=== PATIENT | male | born 1925 | race Caucasian/White ===

== ENCOUNTER 2016-08-23 09:54 | Observation (INO) | payer MEDICARE ==
[~2016-08-23] VITALS: Ht 175.3 cm; Wt 65.0 kg
[~2016-08-23 09:54] MED LIST: ASPI325T32 PO; CLOP75TA3 PO; LISI-571 PO; SIMV20TA4 PO; SYN75 PO; TERA5CAP6 PO; ZYL100 PO
[2016-08-23 09:59] VITALS: BP 137/45; PULSE 91; RESP 17; O2SAT 97
--- NOTE | 2016-08-23 10:17 | ED.REPORT ---
HPI-General Illness Date of Service Aug 23, 2016 ED Provider: Ishmael Valentin MD Pt is an 89 year old male with a hx of orthostatic hypotension, CAD w catheterization, TIA, HTN, and hyperlipidemia who presents to the ED via EMS with concerns for confusion and unilateral weakness. He was at his home, when his brother came over and noticed that he appeared confused and weak on one side. Pt reports that he feels normal, and does not recall any confusion this morning. He has no complaints. No family members are available for further questioning. Pt's brother reports that the pt has a history of severe dementia. He reports that these symptoms have occurred in the past, where he had a difficult time walking, the are unsure what his diagnosis was at that time. Nursing Notes Stated Complaint: CONFUSION/WEAKNESS Chief Complaint: General Complaint Nursing Notes Reviewed: Yes Allergies: Coded Allergies: No Known Allergies (Verified Allergy, Unknown, 08/16/14) Scheduled Allopurinol (Allopurinol) 300 Mg Tablet 150 MG PO DAILY Aspirin (Aspirin) 325 Mg Tablet 325 MG PO DAILY Clopidogrel Bisulfate (Plavix) 75 Mg Tablet 75 MG PO DAILY Hydrochlorothiazide (Hydrochlorothiazide) 25 Mg Tablet 25 MG PO DAILY Levothyroxine (Synthroid) 75 Mcg Tablet 75 MCG PO DAILY Lisinopril (Lisinopril) 5 Mg Tablet 10 MG PO DAILY Simvastatin (Simvastatin) 20 Mg Tablet 20 MG PO QAM Terazosin (Terazosin) 5 Mg Capsule 5 MG PO HS General Time Seen by MD: 09:54 Chief Complaint Other (Reported confusion ) Hx Obtained From: Patient, Other family... Arrived By: Ambulance Sudden in Onset?: Yes Onset Occurred: 1 - 4 hours ago Symptom Duration: Duration unknown Severity: Current: No pain currently Severity: Maximum: No pain Similar Sx Previous: Yes Past Medical History Past Medical History Notes: H notes #1: Just admitted to [facility] for a syncopal episode. Records requested. ECHO August 30, 2014 Past Medical History Gout BPH Hypothyroid Reports: Hyperlipidemia, Hypertension Past Surgical History Cardiac Cath 06/25/10 minor irregularities in the left descending, no significant obstructive coronary artery disease Bioprosthetic Aortic valve replacement at [facility] Reports: Appendectomy Smoking History Former Smoker Social History Alcohol Use: Denies alcohol use Drug Use: Denies drug use Review of Systems Full Review of Systems Constitutional: Denies: Chills, Fever, Malaise, Weakness - generalized Respiratory: Denies: Non-productive cough, Shortness of breath, Wheezing Cardiovascular: Denies: Syncope GI: Denies: Nausea, Vomiting Male: Denies Dysuria, Denies Flank pain, Denies Urinary urgency Neurologic: Denies: Change LOC, Dizziness, Headache, Syncope, Weakness Psychiatric: Denies: Confusion Complete sys rev & neg: except as marked. Physical Exam Vital Signs Vital Signs Date Time Temp Pulse Resp B/P Pulse Ox O2 Delivery O2 Flow Rate FiO2 08/23/16 09:59 37.0 91 17 137/45 97 Room Air Initial VS: Reviewed General/Constitutional: Well-developed, Well-nourished Head / Eyes: Atraumatic, Normocephalic, PERRL ENT: Mucous membranes moist, Conjunctiva normal, No scleral icterus Neck: Supple, Non-tender, Full range of motion Respiratory: Breath sounds normal, Clear to auscultation, No respiratory distress Skin: Warm, Dry, No cyanosis Neurologic: Alert, Oriented, Nonfocal Cardiovascular: Regular rhythm, Heart sounds NL, No gallop Whole systolic murmur, left upper sternal border Interpretation & Diagnostics Lab Results Interpretation Result Diagram: 08/23/16 1010 08/23/16 1010 Test 08/23/16 10:10 White Blood Count 9.1th/mm3 (3.8-10.1) Red Blood Count 3.37mil/mm3 (4.40-5.80) Hemoglobin 10.6g/dL (13.8-17.2) Hematocrit 31.8% (41.0-50.0) Mean Corpuscular Volume 94.4fL (81-100) Mean Corpuscular Hemoglobin 31.5pg (27.0-35.0) Mean Corpuscular Hemoglobin Concent 33.3% (32.0-37.0) Red Cell Distribution Width 12.8% (12.3-15.4) Platelet Count 146bil/L (150-400) Neutrophils (%) (Auto) 91.0% (40-74) Lymphocytes (%) (Auto) 3.5% (14-46) Monocytes (%) (Auto) 4.9% (4-12) Eosinophils (%) (Auto) 0.1% (0-5) Basophils (%) (Auto) 0.2% (0-3) Prothrombin Time 10.5sec (8.1-12.5) Prothromb Time International Ratio 0.98ratio Sodium Level 138mEq/L (134-144) Potassium Level 3.5mEq/L (3.5-5.2) Chloride Level 101mEq/L (97-108) Carbon Dioxide Level 23mmol/L (18-29) Blood Urea Nitrogen 31mg/dL (8-27) Creatinine 1.71mg/dL (0.76-1.27) Estimat Glomerular Filtration Rate 40mL/min (>59) Glucose Level 126mg/dL (60-99) Calcium Level 8.9mg/dL (8.5-10.1) Total Bilirubin 0.7mg/dL (0.0-1.2) Aspartate Amino Transf (AST/SGOT) 18U/L (0-50) Alanine Aminotransferase (ALT/SGPT) 7U/L (0-44) Alkaline Phosphatase 56U/L (25-160) Total Creatine Kinase 56U/L (21-232) Creatine Kinase MB 3.5ng/mL (0.0-10.4) Creatine Kinase MB % % (0.0-5.0) Troponin T 0.319ug/L (0.0-0.011) Total Protein 6.5g/dL (6.4-8.4) Albumin 4.0g/dL (3.4-5.0) ECG Interpretation ECG Interpretation: Sinus tachy - 101 Irregular rate T-wave inversions in 2 avf v4-v6 Unchanged from previous Time: 10:23 Interpreted by: ED physician X-Ray Chest Interpretation Chest Xray Interpretation: IMPRESSION: Increased hazy opacity involving the right apex technically indeterminate. This is asymmetric to the contralateral side and new since prior studies. This is technically nonspecific, differential includes nodule versus pneumonia among other possibilities such as tortuous great vessels. If clinically warranted, further assessment with noncontrast CT could be performed to assess for possible pulmonary nodule, or continued radiographic surveillance at clinical discretion. Dictated by: Drew Yanez M.D. on 08/23/2016 at 11:09 Interpretation / Wet Read by: Interpret - Radiologist CT Head Interpretation IMPRESSION: No acute intracranial process. Dictated by: Drew Yanez M.D. on 08/23/2016 at 11:15 Interpretation / Wet Read by: Interpret - Radiologist Re-Eval/Medical Decision Med Decision/Clinical Course 89-year-old male history of CAD, TIA presenting with episode of confusion earlier and weakness short-lived and resolved spontaneously. Brother witnessed or reported that the patient was staring off into space and unresponsive and had gait instability. 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 Reports history of similar in the past and possible history of TIA. Patient does not recall event as he has a history of short-term memory loss. He is back at his baseline per his brother attempted evaluation. CT shows no acute pathology. Labs remarkable for elevated troponin 0.3. CK is normal. Lateral T wave inversions with previous EKG showing lateral T-wave flattening. Patient denies chest pain. Symptoms consistent with possible TIA. Cannot rule out NSTEMI discussed with cardiology who recommended following enzymes and CPK. Aspirin at this time. No heparin at this time. Patient will be admitted for stroke workup and trending EKG and enzymes. Source of Hx: Old records Time of Eval: 11:26 Re-Evaluation/Progress Note: Pt is rechecked, his brother re-iterates the story, reporting that the pt was walking during his episode, and was not complaining of any chest pain. They are informed of his labs and imaging results, and the plan to admit him at this time. They understand and agree, all questions are addressed. Consultation #1: Referral / Consult Name: Dayami Sotelo MD Consulted With: Cardiology Call Returned at: 11:59 Five Piece Expansion Maker Hand: Agrees with eval, Agrees with plan Consultation #2: Referral / Consult Name: Liu Coughlin DO Consulted With: Hospitalist Call Returned at: 12:15 Five Piece Expansion Maker Hand: Will see patient, Agrees with plan, Accepts admit Counseled Regarding: Diagnosis, Lab results, Need for admission Discharge & Departure Primary Impression: TIA (transient ischemic attack) Additional Impression: Elevated troponin Disposition: ADMITTED TO HOSPITAL Discharge Condition All VS Reviewed: Yes Condition: Stable Referrals: Torres Richmond MD (PCP) Scribe Attestation Portions of this note were transcribed by Adriana Luna. I, Dr. Valentin personally performed the history, physical exam and medical decision-making; I reviewed and confirmed the accuracy of the information in the transcribed note. Signed by: Minal Tran, 08/23/2016 [id number] copies to: Torres Richmond MD, Ben M MD Aug 23, 2016 10:17 KENROY LUNA Aug 23, 2016 10:25
[2016-08-23 10:23] LABS: BASOPHILS % (AUTO) 0.2 % (0-3); EOSINOPHILS % (AUTO) 0.1 % (0-5); MONOCYTES % (AUTO) 4.9 % (4-12); Mean Corpuscular Hemoglobin 31.5 pg (27.0-35.0); Mean Corpuscular Volume 94.4 fL (81-100); Platelet Count 146 bil/L (150-400)
[2016-08-23 10:37] LABS: INR 0.98 ratio
--- NOTE | 2016-08-23 11:13 | DRSVH ---
PROCEDURE: X-RAY CHEST ONE VIEW, PORTABLE ([id number]) INDICATIONS: Transiet ISTHEMIC ACCIDENT TECHNIQUE: One view of the chest was acquired. COMPARISON: [facility], CR, XR CHEST 1VW (PORTABLE), 10/31/2014, 11:46. FINDINGS: Surgical changes and devices: None. Lungs and pleura: No pleural effusions or pneumothorax. Mild increased hazy opacification involving the right apex otherwise lungs are clear. Mediastinum: Mediastinal contours appear normal. Heart size is normal. Bones and chest wall: No suspicious bony lesions. Overlying soft tissues appear unremarkable. IMPRESSION: Increased hazy opacity involving the right apex technically indeterminate. This is asymmetric to the contralateral side and new since prior studies. This is technically nonspecific, differential include s nodule versus pneumonia among other possibilities such as tortuous great vessels. If clinically war ranted, further assessment with noncontrast CT could be performed to assess for possible pulmonary no dule, or continued radiographic surveillance at clinical discretion. Dictated by: Drew Yanez M.D. on 08/23/2016 at 11:09 Approved by: Drew Yanez M.D. on 08/23/2016 at 11:11
[2016-08-23] MEDS ORDERED: ALLO300T2 PO (11:16)
[2016-08-23] MEDS ORDERED: HYDR25TA4 PO (11:16)
--- NOTE | 2016-08-23 11:18 | DRSVH ---
PROCEDURE: CT BRAIN WITHOUT CONTRAST ([id number]) INDICATIONS: TIA TECHNIQUE: Noncontrast 4.5 mm thick angled axial sections acquired from the foramen magnum to the vertex, with c oronal reformats. COMPARISON: None. FINDINGS: Image quality: Excellent. CSF spaces: Basal cisterns are patent. No extra-axial fluid collections. The ventricles are symmet rylie in size and shape. Brain: No intracranial bleeds or masses. There is cerebral volume loss for age, with resultant vent ricular and sulcal prominence. There are periventricular and deep white matter chronic small vessel ischemic changes. There is intracranial internal carotid artery atherosclerosis. Skull and face: Calvarium and visualized facial bones appear intact, without suspicious lesions. Sinuses: Visualized sinuses and mastoids are clear. IMPRESSION: No acute intracranial process. Dictated by: Drew Yanez M.D. on 08/23/2016 at 11:15 Approved by: Drew Yanez M.D. on 08/23/2016 at 11:17
[2016-08-23] MEDS ORDERED: Labetalol 5 mg/mL 4 mL Inj IVPUSH PRN (12:15)
[2016-08-23] MEDS ORDERED: Alum-Mag Hydrox-Simeth 30 mL Suspension PO PRN (12:15)
[2016-08-23] MEDS ORDERED: Ondansetron 2 mg/mL 2 mL Inj IVPUSH PRN (12:15)
[2016-08-23] MEDS ORDERED: Polyethylene Glycol (PEG) 17 Gm Powder PO PRN (12:15)
--- NOTE | 2016-08-23 12:15 | PCM.HPMED ---
Subjective Date of Service Aug 23, 2016 Primary Provider: Admitting Physician: Primary Care Physician: Torres Richmond MD Attending Physician: Chief Complaint: Syncopal event, transient loss of consciousness History of Present Illness: Patient is an 89-year-old male with a past medical history significant for coronary artery disease status post catheterization, previous TIA hyperlipidemia and hypertension in addition to severe dementia presenting from home via EMS after he was witnessed by his brother earlier this morning demonstrated event of acute confusion followed by a nonresponsive episode in addition to a transient weakness that led to him needing to slump onto a banister. Patient did not completely lose consciousness, and never fell to the floor shows no concern for acute trauma. The brother ever confirms patient was completely unresponsive at this time event, and patient himself has no recollection. During ER evaluation in fact the patient has no complaints whatsoever, and states he is feeling very well. Does not know his history of dementia states he may have had a heart attack a long time ago, but states he is otherwise healthy and endorses no other medical history, which is inconsistent with that history is obtained from brother. Nonetheless he does not appear in any distress during our interview, symptoms of weakness in addition to impaired consciousness appear to have completely resolved as per his report. Patient's mother was not present during my examination while in hospital floor so my history is obtained entirely from patient in addition to medical record confirmed by emergency room physician of his discussion with brother who was present at time of presentation to emergency department. Review of Systems: Complete review of systems was unable to be conducted due to patient's profound dementia and poor insight into his condition. Allergies Coded Allergies: No Known Allergies (Verified Allergy, Unknown, 08/16/14) Home Medications Allopurinol (Allopurinol) 300 Mg Tablet 150 MG PO DAILY Aspirin (Aspirin) 325 Mg Tablet 325 MG PO DAILY Clopidogrel Bisulfate (Plavix) 75 Mg Tablet 75 MG PO DAILY Hydrochlorothiazide (Hydrochlorothiazide) 25 Mg Tablet 25 MG PO DAILY Levothyroxine (Synthroid) 75 Mcg Tablet 75 MCG PO DAILY Lisinopril (Lisinopril) 5 Mg Tablet 10 MG PO DAILY Simvastatin (Simvastatin) 20 Mg Tablet 20 MG PO QAM Terazosin (Terazosin) 5 Mg Capsule 5 MG PO HS PMH Gout BPH Hypothyroid Hyperlipidemia Hypertension Surgical History Cardiac Cath 06/25/10 minor irregularities in the left descending, no significant obstructive coronary artery disease Bioprosthetic Aortic valve replacement at [facility] Appendectomy Family History Patient denies any significant family history, brother is not present during my examination to corroborate these findings. Social History Hx Alcohol Use: No (Quit in 1980) Hx Substance Use: No Hx Tobacco Use: No Smoking Status: Former Smoker Suspect Abuse/Neglect: Disabled Person Exam Vital Signs Vital Sign - Last Date Time Temp Pulse Resp B/P Pulse Ox O2 Delivery O2 Flow Rate FiO2 08/23/16 09:59 37.0 91 17 137/45 97 Room Air General: Alert, Cooperative, No Acute Distress Eyes: PERRLA Neck: Supple Chest & Lungs: Clear to auscultation & percussion, No adventitious breath sounds Cardiovascular: Regular Rate/Rhythm Abdomen: Non-tender, Non-distended Extremities: No cyanosis/clubbing/edma bilat Neurological: Grossly Neurologically Intact, Cranial Nerves 2-12 Intact, Normal Speech Lab and Diagnostics Result Diagram: 08/23/16 1010 08/23/16 1010 Assessment & Plan 89-year-old male past medical history for significant vascular disease in addition to profound dementia presenting via EMS following transient loss of consciousness syncopal event placed on hospital observation for further evaluation of possible transient ischemic attack / cerebrovascular # Syncopal event/transient loss of consciousness - Patient will be placed on hospital observation following TIA stroke protocol - We monitored on continuous telemetry - MR stroke studies were already obtained, no contrast medium could be used to the patient's impaired renal function MR study of brain did not demonstrate any evidence of CVA - Carotid Doppler studies and echocardiogram are still pending, as is exam fasting lipid panel - Permissive hypertension will be allowed at this time, with when necessary agents made available for excessive elevation of blood pressure # Elevated troponins - May be secondary to renal insufficiency in addition to cardiac strain - We will continue to trend, there is no other EKG evidence of acute coronary syndrome - Additionally will continue telemetry monitoring as noted above - Center for intervention should troponins continued to be upper trending. - Echocardiogram is initially pending as noted above. #Renal insufficiency - A be at least partially related to volume depletion, patient does historically have impaired renal function - We will trial intravenous fluid repletion and continue to monitor. # Vascular disease/hypertension - We will continue patient's home medications at this time with the exception of hydrochlorothiazide which will be held to allow permissive hypertension in the setting of renal insufficiency. - Lipid panel is pending - Statin transitioned from simvastatin to atorvastatin which is a higher potency medication. # Severe dementia - Patient is pleasantly demented - Has poor insight does not appear to need any sitter or one-on-one observation. - On no medications currently. Pain Evaluation: Adequate Pain Control GI Prophylaxis: Not indicated VTE Mechanical Devices: Intermittant Pneumatic CD Resuscitation Status: CPR: Attempt Resuscitation Time spent 50 minutes Liu Coughlin DO Aug 23, 2016 12:15
[2016-08-23 12:30] LABS: Creatine Kinase 56 U/L (21-232)
--- NOTE | 2016-08-23 13:51 | DRSVH ---
PROCEDURE: MRI BRAIN WITHOUT CONTRAST ([id number]) INDICATIONS: syncopy TECHNIQUE: Non-contrast axial T1 spin echo, axial T2 fast spin echo, sagittal and axial FLAIR, coronal T2 fast s pin echo, axial gradient echo, axial diffusion and ADC through the brain. COMPARISON: None. FINDINGS: Image quality: Excellent. CSF spaces: Ventricles appear symmetric in size and shape. Basal cisterns are patent. No extra-axi al fluid collections. Brain: No acute intracranial bleeds or mass effects. Small regions of gradient echo signal abnormal ity within the left superior frontal lobe, as well as the left anterior temporal lobe are present, mehta ggestive of calcifications versus cavernous hemangiomas. There is cerebral volume loss for age. Ther e are periventricular and deep white matter chronic small vessel ischemic changes. Brainstem appears normal. Diffusion-weighted images show no acute ischemic insults. No chronic ischemic insults. No rmal intravascular flow voids are present. Skull and face: Calvarial bone marrow is normal in signal. Orbits are normal. Sinuses: Sinuses and mastoids are clear. IMPRESSION: 1. No acute intracranial animality. No recent infarct. 2. Mild volume loss and small vessel ischemic disease. 3. Small foci of calcification versus cavernous hemangiomata within the left frontal and temporal lob es. Dictated by: Airam Monteiro M.D. on 08/23/2016 at 12:47 Approved by: Airam Monteiro M.D. on 08/23/2016 at 12:49
--- NOTE | 2016-08-23 13:53 | DRSVH ---
PROCEDURE: MRA ANGIOGRAM HEAD WITHOUT CONTRAST ([id number]) INDICATIONS: CONFUSION TECHNIQUE: Noncontrast axial 3-D [id number] MR angiogram, with 3-dimensional maximum intensity projection (M IP) reformats of the internal carotid arteries and posterior circulation then performed. COMPARISON: None. FINDINGS: Image quality: Excellent. Anterior circulation: Moderate reduced flow within the right precavernous internal carotid artery. I ntracranial internal carotid arteries demonstrate otherwise normal size and intraluminal flow signal. The flow within the paired anterior cerebral arteries is normal and symmetric. The flow within the middle cerebral arteries is normal and symmetric. The anterior communicating artery is seen. No oc clusions, or aneurysms. Posterior circulation: Visualized portions of the vertebral arteries demonstrate normal caliber, and join to form a normal appearing basilar artery. origin of the left posterior cerebral artery. The flow within the posterior cerebral arteries is normal and symmetric. No stenoses, occlusions, o r aneurysms. IMPRESSION: 1. 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 Otherwise negative cerebr al MR angiography. Dictated by: Airam Monteiro M.D. on 08/23/2016 at 12:49 Approved by: Airam Monteiro M.D. on 08/23/2016 at 12:51
[2016-08-23 13:56] VITALS: BP 134/60; PULSE 80; RESP 20; O2SAT 95
[2016-08-23 13:58] VITALS: PULSE 88
--- NOTE | 2016-08-23 14:11 | NUR ---
Evaluation completed. Please go to "Notes" then click on "Assessments and Notes" (bottom left corner of screen). Then select appropriate discipline tab on top of screen.
--- NOTE | 2016-08-23 14:46 | NUR ---
Admit Pt is A&O to self, place and time but is forgetful. Pts brother stated that the pt has a hx of dementia. VS WNL. Swallow evaluation completed by speech. 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 Pt is ATKA. Steady gait but d/t dx and recent [place] [facility] [place] episodes pt was placed on fall precautions. Pt denies cp, any pain or discomfort. Pt asked to keep his jeans on after assessment was completed and said that he would take them off tonight.
[2016-08-23 17:28] LABS: APPEARANCE,URINE CLEAR (CLEAR,HAZY); COLOR,URINE YELLOW (YELLOW); OCCULT BLOOD,URINE TRACE (NEGATIVE); PH,URINE 5.5 (5.0-8.0); UROBILINOGEN,URINE NORMAL (NORMAL)
--- NOTE | 2016-08-23 17:47 | DRSVH ---
PROCEDURE: US BILATERAL DUPLEX DOPPLER IMAGING OF THE CAROTIDS ([id number]) INDICATIONS: syncopal episode TECHNIQUE: Color and pulse Doppler interrogation was performed of both carotid systems, with image documentation and velocity measurements. COMPARISON: None. FINDINGS: All stenosis calculations are based on NASCET criteria. Right side: Brachial blood pressure: 134/60 mm Hg. Common carotid artery peak systolic velocity: 63 cm/sec. Internal carotid artery peak systolic velocity: 151 cm/sec. Internal carotid artery end diastolic velocity: 18 cm/sec. External carotid artery peak systolic velocity: 145 cm/sec. ICA/CCA peak systolic ratio: 2.4. Giang scale imaging description: Calcified plaque at the proximal ICA Percent internal carotid artery stenosis: 50-69%. Vertebral artery: Flow direction is antegrade. Left side: Brachial blood pressure: Not obtained Common carotid artery peak systolic velocity: 87 cm/sec. Internal carotid artery peak systolic velocity: 137 cm/sec. Internal carotid artery end diastolic velocity: 15.7 cm/sec. External carotid artery peak systolic velocity: 134 cm/sec. ICA/CCA peak systolic ratio: 1.57. Giang scale imaging description: Calcified plaque at the proximal ICA Percent internal carotid artery stenosis: 50-69%. Vertebral artery: Flow direction is antegrade. 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 on 08/23/2016 at 17:43 Approved by: Drew Yanez M.D. on 08/23/2016 at 17:45
[2016-08-23 17:55] VITALS: BP 155/63; PULSE 57; RESP 18; O2SAT 99
[2016-08-23] MEDS: 0.9% Sodium Chloride 1,000 ML IV SCH (18:07)
[2016-08-23 20:00] VITALS: PULSE 72
[2016-08-23 21:09] VITALS: BP 154/74; PULSE 47; RESP 18; O2SAT 99
[2016-08-24 01:00] VITALS: BP 176/65; PULSE 72; RESP 18; O2SAT 98
[2016-08-24] MEDS: 0.9% Sodium Chloride 1,000 ML IV SCH ×2 (04:13→14:06)
[2016-08-24 05:16] VITALS: BP 123/45; PULSE 72; RESP 18; O2SAT 94
--- NOTE | 2016-08-24 05:38 | NUR ---
NOC Activity Pt is alert and oriented but is a little forgetful. Pleasant and cooperative with care. Neuro checks done. No obvious signs of facial droop, slurring of speech or tongue deviation. 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 Denies chest pain, sob, n/v or abd discomfort. VSS and WNL. Has been afebrile overnight. HS meds administered as scheduled. Intentional hourly rounding done, Bed alarm on for safety.
--- NOTE | 2016-08-24 09:18 | NUR ---
Attempted evaluation this morning but pt. busy with other staff. Will try again as able. Jimbo Ferreira, OTR/L
[2016-08-24 09:23] VITALS: BP 161/61; PULSE 63; RESP 18; O2SAT 97
[2016-08-24 10:06] VITALS: PULSE 75
--- NOTE | 2016-08-24 10:39 | NUR ---
Evaluation completed. Please go to "Notes" then click on "Assessments and Notes" (bottom left corner of screen). Then select appropriate discipline tab on top of screen.
--- NOTE | 2016-08-24 11:03 | NUR ---
Social Work-initial assessment/ readiness for discharge: data:See initial assessment. Pt is a 89 y/o male who was admitted on 08/23/16 for TIA per H&P. Pt's insurance is [facility] and PCP is Torres Richmond MD. EMR Reviewed. Pt's readmission score is 3-high. SW met with pt at bedside,SW role explained. Pt is alert and oriented x3. Pt resides at home alone and his brother lives next door. Pt does not use any DME and does not drive. Pt has no HH or SNF history. Pt has no delivery man care insurance or VA benefits. SW discussed DPOA/ advanced directive, pt confirms he has completed this, SW encouraged a copy to be brought into the hospital. PT has cleared pt for home no needs. Pt states his brother will provide transprot home. Pt declined having SW call his brother. SW provided phone number and plan on white board in room. No anticipated discharge needs. SW will continue to follow if needs arise. Assessment:Pt who is independent at baseline. Plan:Pt to discharge home when medically stable via POV. No anticipated discharge needs. SW will continue to follow if needs arise. MYRTLE Beth Addendum: 08/24/16 at 1107 by STEPHANIE DIAZ Amended: Links added.
[2016-08-24 12:45] VITALS: BP 154/63; PULSE 72; RESP 16; O2SAT 99
--- NOTE | 2016-08-24 12:46 | NUR ---
Case Management: Attempted to give ARTEAGA, however no family members were in the room and the pt has dementia. Darcie HERNANDEZ RN
--- NOTE | 2016-08-24 15:30 | PCM.DC.MED ---
Discharge Summary Date of Service Aug 24, 2016 Dates of Hospitalization Date of Hospital Admission Aug 23, 2016 at 12:35 Date of Discharge: Aug 24, 2016 Providers: Admitting Physician: Liu Coughlin DO Primary Care Physician: Torres Nielsen MD Attending Physician: Liu Coughlin DO Diagnosis at Time of Discharge Diagnosis at Time of Discharge Dehydration with resultant pre-syncopal episode. No evidence of CVA or carcinogenic cause. Procedures Cardiac Echo Impression Echocardiogram Report Name: ANN PHILIPPE WStudy Date: 08/24/2016 Height: 69 in Hospital Exam Location: [facility] Weight: 143 lb Gender: Male BSA: 1.8 m2 : 1925 Age: 89 yrs BP: 123/45 mmHg Reason For Study: SYNCOPE Ordering Physician: MACARIO NAYLOR Performed By: Jesu Alejo Referring Physician: Jessica NIELSEN Interpretation Summary 1. Normal left ventricular size, wall thickness with normal systolic function and an estimated EF of 60-65% 2. Normal right ventricular size and systolic function 3. No evidence for stenosis of the bioprosthetic aortic valve. There is mild insufficiency. 4. Evidence for moderate to severe mitral regurgitation Brief History Patient is an 89-year-old male with a past medical history significant for coronary artery disease status post catheterization, previous TIA hyperlipidemia and hypertension in addition to severe dementia presenting from home via EMS after he was witnessed by his brother earlier this morning demonstrated event of acute confusion followed by a nonresponsive episode in addition to a transient weakness that led to him needing to slump onto a banister. Patient did not completely lose consciousness, and never fell to the floor shows no concern for acute trauma. The brother ever confirms patient was completely unresponsive at this time event, and patient himself has no recollection. During ER evaluation in fact the patient has no complaints whatsoever, and states he is feeling very well. Does not know his history of dementia states he may have had a heart attack a long time ago, but states he is otherwise healthy and endorses no other medical history, which is inconsistent with that history is obtained from brother. Nonetheless he does not appear in any distress during our interview, symptoms of weakness in addition to impaired consciousness appear to have completely resolved as per his report. Patient's mother was not present during my examination while in hospital floor so my history is obtained entirely from patient in addition to medical record confirmed by emergency room physician of his discussion with brother who was present at time of presentation to emergency department. 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 May consider FU studies out patient though risk of endartectomy may outweigh benefits in this patient with multi other coomorbidities. - Echocardio gram demonstrated well seat prostetic valves, essentially unchanged from previous studies. - Most likely related to dehydration ad pt admits to drinking very little, and is additionally on diuretic medication Pt discharged in improved and stable condition. Plan to hold HCTZ, continue only Lisinopril, which had controlled BP well during hospital stay. # Elevated Troponins - May be secondary to renal insufficiency in addition to cardiac strain. NO wall motion abnormalities noted on echo. - They did not prove upward trending, improved with hydration, and in addition CK-MB was within normal limits. #Renal insufficiency - A be at least partially related to volume depletion, patient does historically have impaired renal function Resolved with IV hydration. # Vascular disease/hypertension - We will continue patient's home medications at this time with the exception of hydrochlorothiazide which will be held to allow permissive hypertension in the setting of renal insufficiency. - Statin transitioned from simvastatin to atorvastatin which is a higher potency medication. HCTZ held on discharge with stable BP on only ACEi. # Severe dementia - Patient is pleasantly demented - Good home support by brother. - On no medications currently. Exam Vital Signs (Last) Date Time Temp Pulse Resp B/P Pulse Ox O2 Delivery O2 Flow Rate FiO2 08/24/16 12:45 36.8 72 16 154/63 99 Room Air Exam General: Alert, Cooperative, No Acute Distress Eyes: PERRLA Neck: Supple Chest & Lungs: Clear to auscultation & percussion, No adventitious breath sounds Cardiovascular: Regular Rate/Rhythm Abdomen: Non-tender, Non-distended Extremities: No cyanosis/clubbing/edma bilat Neurological: Grossly Neurologically Intact, Cranial Nerves 2-12 Intact, Normal Speech Test 08/23/16 10:10 08/23/16 17:04 08/23/16 18:22 08/24/16 05:10 White Blood Count 9.1th/mm3 (3.8-10.1) Red Blood Count 3.37mil/mm3 (4.40-5.80) Hemoglobin 10.6g/dL (13.8-17.2) Hematocrit 31.8% (41.0-50.0) Mean Corpuscular Volume 94.4fL (81-100) Mean Corpuscular Hemoglobin 31.5pg (27.0-35.0) Mean Corpuscular Hemoglobin Concent 33.3% (32.0-37.0) Red Cell Distribution Width 12.8% (12.3-15.4) Platelet Count 146bil/L (150-400) Neutrophils (%) (Auto) 91.0% (40-74) Lymphocytes (%) (Auto) 3.5% (14-46) Monocytes (%) (Auto) 4.9% (4-12) Eosinophils (%) (Auto) 0.1% (0-5) Basophils (%) (Auto) 0.2% (0-3) Prothrombin Time 10.5sec (8.1-12.5) Prothromb Time International Ratio 0.98ratio Total Bilirubin 0.7mg/dL (0.0-1.2) Aspartate Amino Transf (AST/SGOT) 18U/L (0-50) Alanine Aminotransferase (ALT/SGPT) 7U/L (0-44) Alkaline Phosphatase 56U/L (25-160) Total Creatine Kinase 56U/L (21-232) Creatine Kinase MB 3.5ng/mL (0.0-10.4) Creatine Kinase MB % % (0.0-5.0) Total Protein 6.5g/dL (6.4-8.4) Albumin 4.0g/dL (3.4-5.0) Urine Color Yellow (YELLOW) Urine Appearance Clear (CLEAR,HAZY) Urine pH 5.5 (5.0-8.0) Urine Specific [place] 1.010 (1.003-1.035) Urine Protein Negativemg/dL (NEG,TRACE) Urine Glucose (UA) Negativemg/dL (NEGATIVE) Urine Ketones Negativemg/dL (NEGATIVE) Urine Occult Blood Trace (NEGATIVE) Urine Nitrite Negative (NEGATIVE) Urine Bilirubin Negative (NEGATIVE) Urine Urobilinogen Normalmg/dL (NORMAL) Urine Leukocyte Esterase Negative (NEGATIVE) Urine RBC 0-2/hpf (0-2) Urine WBC 0-5/hpf (0-5) Urine Epithelial Cells None/hpf (NONE-MOD) Urine Crystals None seen (NONE SEEN) Urine Bacteria Few/hpf (NONE-FEW) Urine Hyaline Casts None/lpf (NONE) Urine Granular Casts None seen (NONE SEEN) Urine Waxy Casts None seen (NONE SEEN) Urine Red Blood Cell Casts None seen (NONE SEEN) Urine White Blood Cell Casts None seen (NONE SEEN) Urine Mucus Present (None Seen) Urine Trichomonas None seen (NONE SEEN) Urine Yeast None (NONE SEEN) Urinalysis Comment None Urine Culture Reflexed Not indicated Troponin T 0.299ug/L (0.0-0.011) Sodium Level 138mEq/L (134-144) Potassium Level 3.6mEq/L (3.5-5.2) Chloride Level 103mEq/L (97-108) Carbon Dioxide Level 22mmol/L (18-29) Blood Urea Nitrogen 33mg/dL (8-27) Creatinine 1.51mg/dL (0.76-1.27) Estimat Glomerular Filtration Rate 47mL/min (>59) Glucose Level 103mg/dL (60-99) Calcium Level 8.4mg/dL (8.5-10.1) Triglycerides Level 37mg/dL (0-149) Cholesterol Level 115mg/dL (100-199) LDL Cholesterol, Calculated 32.600mg/dL (0-99) VLDL Cholesterol 7.400mg/dL HDL Cholesterol 75mg/dL (>39) Cholesterol/HDL Ratio 1.53 (0.0-4.4) Discharge Medications Discharge Medications Allopurinol (Allopurinol) 300 Mg Tablet 150 MG PO DAILY (Reported) Aspirin (Aspirin) 325 Mg Tablet 325 MG PO DAILY (Reported) Clopidogrel Bisulfate (Plavix) 75 Mg Tablet 75 MG PO DAILY (Reported) Levothyroxine (Synthroid) 75 Mcg Tablet 75 MCG PO DAILY (Reported) Lisinopril (Lisinopril) 5 Mg Tablet 10 MG PO DAILY Prescribed by: COLUMBA JAMES MD Simvastatin (Simvastatin) 20 Mg Tablet 20 MG PO QAM (Reported) Terazosin (Terazosin) 5 Mg Capsule 5 MG PO HS Prescribed by: COLUMBA JAMES MD Followup Plan Disposition: HOme with family (Brother) who is next-door neighbor. Discharge Diet: No restrictions, Heart Healthy, Other (drink at least 8 glasses of water per day. ) Discharge Activity: No restrictions Follow-up Provider: Torres Nielsen MD Follow-up with PCP in: 1 week Time spent 45 minutes copies to: Alicia Colunga; Torres Nielsen MD, Benjamin P DO Aug 24, 2016 15:30
--- NOTE | 2016-08-24 15:35 | PCM.DIMED ---
Discharge Instructions Date of Service Aug 24, 2016 Dates of Hospitalization Aug 23, 2016 at 12:35 Discharge Diagnosis Discharge Diagnosis Dehydration with resultant pre-syncopal episode. No evidence of CVA or carcinogenic cause. Diet Discharge Diet: No restrictions, Heart Healthy Activity Discharge Activity: No restrictions Call your provider Call your provider for: Fever or Chills, Shortness of breath, Chest pain, Weakness (unilateral) Patient Instructions Patient Instructions Hold hydrochlorothiazide (HCTZ) until Follow up with primary care physician Try to drink at least 8 glasses of water per day, limit caffeine intake. Follow-up Provider: Torres Richmond MD Follow-up with PCP in: 1 week Liu Coughlin DO Aug 24, 2016 15:35
--- NOTE | 2016-08-24 16:13 | NUR ---
Social Work-discharge: Data:EMR Reviewed. Pt is on day 1 of hospitalization for TIA per H&P. Pt is medically stable for discharge. PT has cleared pt for home no needs. Pt's brother to provide transport home today. No discharge needs identified. All updated and agreeable to plan. Assessment:Pt who is independent at baseline. Plan:Pt to discharge home today via POV. No discharge needs identified. All updated and agreeable to plan. MYRTLE Beth
--- NOTE | 2016-08-24 16:42 | NUR ---
Discharge Patient discharge to home with all belongings at 1638. Explained to patient when next medications are due and discharge instructions. Patient verbalized understanding. Dc'd IV intact. Dc'd telemetry. Vitals stable. Patient left floor via wheelchair accompanied by family and this RN with no signs of distress.
--- NOTE | 2016-08-24 18:17 | NUR ---
Case Management: Attempted to provide ARTEAGA to patient at 1750. Pt discharged. Michelle Mullins RN
--- NOTE | 2016-08-24 18:30 | DRSVH ---
[facility] [address] [place] [address] Echocardiogram Report Name: ANN PHILIPPE WStudy Date: 08/24/2016 Height: 69 in Hospital Exam Location: [facility] Weight: 143 lb Gender: Male BSA: 1.8 m2 : 1925 Age: 89 yrs BP: 123/45 mmHg Reason For Study: SYNCOPE Ordering Physician: MACARIO NAYLOR Performed By: Jesu Alejo Referring Physician: Jessica NIELSEN Interpretation Summary 1. Normal left ventricular size, wall thickness with normal systolic function and an estimated EF of 60-65% 2. Normal right ventricular size and systolic function 3. No evidence for stenosis of the bioprosthetic aortic valve. There is mild insufficiency. 4. Evidence for moderate to severe mitral regurgitation Compared to the previous study of 2014, the mitral regurgitation has worsened. Procedure: A two-dimensional transthoracic echocardiogram with color flow and Doppler was performed. The study quality was technically adequate. Comparison is made with the echocardiogram of 11/01/14. The patient was in normal sinus rhythm during the exam. The patient had frequent PACs during the exam. Left Ventricle: The left ventricle is normal in size. There is normal left ventricular wall thickness. The outflow tract velocities are elevated. The ejection fraction is estimated to be 60-65%. There are no focal wall motion abnormalities. Right Ventricle: The right ventricle is normal in size and function. Atria: The left atrium is severely dilated. Right atrial size is normal. The interatrial septum is intact with no evidence for an atrial septal defect. Mitral Valve: There is moderate to severe mitral annular calcification. The mitral valve leaflets are mildly calcified. The mitral valve chordae are thickened and/or calcified. There is mild prolapse of the posterior mitral valve leaflet(s). Flow reversal noted in pulmonary veins consistent with significant mitral regurgitation. The mitral regurgitant jet is eccentric and is moderate to severe in severity. Aortic Valve: There is a bioprosthetic aortic valve. The prosthetic aortic valve is well-seated. The peak aortic velocity is 3.33 m/sec. The aortic valve mean gradient is 24.3 mmHg. The calculated aortic valve area is 1.7 cm2. Velocity gradient is 0.51. There is mild aortic regurgitation. Tricuspid Valve: The tricuspid valve leaflets are thin and pliable. There is moderate tricuspid regurgitation. The right ventricular systolic pressure is estimated at 34 mmHg assuming a right atrial pressure of 8 mm Hg. Pulmonic Valve: The pulmonic valve is not well seen, but is grossly normal. There is trace pulmonic regurgitation. Great Vessels: The aortic root is normal size. The dimensions of the ascending aorta are normal. The pulmonary artery is normal size. The IVC is dilated (diameter is greater than 2.1 cm) yet it collapses greater than 50% with a sniff. This suggests a right atrial pressure of 8 mm Hg. Pericardium/ Pleura There is no pericardial effusion. There is no pleural effusion. MMode/2D Measurements & Calculations LVIDd: 5.1 cm RA long axis LVOT diam LVIDs: 3.5 cm LA A2 area: 30.1 cm FS: 31.8 % LA A4 area: 36.2 cm RA area Ao root diam EPSS: 1.2 cm LA length (vol): 6.7 cm IVSd: 0.92 cm LA vol: 138.9 ml : 18.0 cm Aortic Jxn LVPWd: 1.1 cm LA vol index RA vol: 49.2 ml RA asc Aorta : 27.5 mm2 Diam: 2.8 cm IVC diam: 2.6 cm LV marquez. diameter/BSA LV sys. diameter/BSA RVD1 (basal) RVD2 (mid) (cm/m^2): 2.8 (cm/m^2): 1.9 : 4.1 cm Doppler Measurements & Calculations Ao V2 max MV E max mikie MV E/A: 0.64 TR max mikie : 333.8 cm/sec : 86.4 cm/sec Med Peak E' Mikie : 254.2 cm/sec Ao max P.6 mmHg MV A max mikie TR max PG Ao mean P.3 mmHg : 135.7 cm/sec E/E' med: 19.1 : 25.8 mmHg LVOT Max Mikie Pulm A Revs Dur PA V2 max : 171.1 cm/sec MVA(VTI): 3.3 cm2 : 87.4 cm/sec MV A dur PA mean PG SRIKANTH(I,D): 1.7 cm : 0.13 sec sev ratio: 0.53 PA Accel Time AI P1/2t: 363.7 msec : 0.12 sec AI dec slope : 369.8 cm/s2c MV V2 mean Ao V2 mean LV V1 max PG PA V2 mean : 75.4 cm/sec : 235.0 cm/sec : 62.6 cm/sec MV mean P.6 mmHg Ao V2 VTI: 76.9 cm LV V1 VTI PA pr(Accel) MV V2 VTI: 38.4 cm SRIKANTH(V,D): 1.6 cm2 : 40.4 cm : 29.3 mmHg MV dec time: 0.34 sec SRIKANTH indexed to BSA Pulm A Revs Dur - MV A (cm^2/m^2): 0.93 Dur: -0.04 msec Reading Physician:06:30 PM
== END 2016-08-24 16:09 | disposition home or self-care (01) ==
LOC: SED 09:54 → MPC 12:35
PROVIDERS: ADMIT Family Medicine; ATTEND Family Medicine
DX: E86.0 Dehydration (principal); R55 Syncope and collapse; R79.89 Other specified abnormal findings of blood chemistry; N28.9 Disorder of kidney and ureter, unspecified; I10 Essential (primary) hypertension; F03.90 Unspecified dementia, unspecified severity, without behavioral disturbance, psychotic disturbance, mood disturbance, and anxiety; I25.10 Atherosclerotic heart disease of native coronary artery without angina pectoris; E78.5 Hyperlipidemia, unspecified; E03.9 Hypothyroidism, unspecified; I95.1 Orthostatic hypotension; M10.9 Gout, unspecified; N40.0 Benign prostatic hyperplasia without lower urinary tract symptoms; Z86.73 Personal history of transient ischemic attack (TIA), and cerebral infarction without residual deficits; Z79.82 Long term (current) use of aspirin; Z87.891 Personal history of nicotine dependence; Z95.4 Presence of other heart-valve replacement
CPT/HCPCS: 36415; 70450; 70544; 70551; 71010; 80048; 80053; 80061; 81000; 82550; 82553; 84484; 85025; 85610; 92610; 93005; 93880; 97161; 99285; C8929; G0378; G8978; G8979; G8980; G8996; G8997; G8998; J7030

== ENCOUNTER 2016-10-06 12:48 | Emergency (ER) | payer MEDICARE ==
[~2016-10-06] VITALS: Ht 175.3 cm; Wt 66.8 kg
[~2016-10-06 12:48] MED LIST changes: +ALLO300T2 PO; -ZYL100 PO
[2016-10-06 12:52] VITALS: BP 192/81; PULSE 86; RESP 20; O2SAT 91
--- NOTE | 2016-10-06 12:57 | ED.REPORT ---
HPI-General Illness Date of Service Oct 06, 2016 ED Provider: Nursing Notes Stated Complaint: SHORTNESS OF BREATH Chief Complaint: Respiratory Complaints Allergies: Coded Allergies: No Known Allergies (Verified Allergy, Unknown, 10/06/16) Scheduled Allopurinol (Allopurinol) 300 Mg Tablet 150 MG PO DAILY Aspirin (Aspirin) 325 Mg Tablet 325 MG PO DAILY Clopidogrel Bisulfate (Plavix) 75 Mg Tablet 75 MG PO DAILY Levothyroxine (Synthroid) 75 Mcg Tablet 75 MCG PO DAILY Lisinopril (Lisinopril) 5 Mg Tablet 10 MG PO DAILY Simvastatin (Simvastatin) 20 Mg Tablet 20 MG PO QAM Terazosin (Terazosin) 5 Mg Capsule 5 MG PO HS General Time Seen by MD: 14:08 Past Medical History Past Medical History Notes: [facility] notes #1: Just admitted to [facility] for a syncopal episode. Records requested. ECHO August 30, 2014 Past Medical History Gout BPH Hypothyroid Reports: Hyperlipidemia, Hypertension Past Surgical History Cardiac Cath 06/25/10 minor irregularities in the left descending, no significant obstructive coronary artery disease Bioprosthetic Aortic valve replacement at [facility] Reports: Appendectomy Smoking History Former Smoker Social History Alcohol Use: Denies alcohol use Drug Use: Denies drug use Physical Exam Vital Signs Vital Signs Date Time Temp Pulse Resp B/P Pulse Ox O2 Delivery O2 Flow Rate FiO2 10/06/16 12:52 36.4 86 20 192/81 91 Room Air Interpretation & Diagnostics Lab Results Interpretation Result Diagram: 10/06/16 1315 10/06/16 1315 Test 10/06/16 13:15 White Blood Count 5.2th/mm3 (3.8-10.1) Red Blood Count 3.41mil/mm3 (4.40-5.80) Hemoglobin 10.6g/dL (13.8-17.2) Hematocrit 31.8% (41.0-50.0) Mean Corpuscular Volume 93.3fL (81-100) Mean Corpuscular Hemoglobin 31.1pg (27.0-35.0) Mean Corpuscular Hemoglobin Concent 33.3% (32.0-37.0) Red Cell Distribution Width 14.0% (12.3-15.4) Platelet Count 155bil/L (150-400) Neutrophils (%) (Auto) 79.9% (40-74) Lymphocytes (%) (Auto) 11.6% (14-46) Monocytes (%) (Auto) 7.3% (4-12) Eosinophils (%) (Auto) 0.4% (0-5) Basophils (%) (Auto) 0.6% (0-3) Sodium Level 133mEq/L (134-144) Potassium Level 4.0mEq/L (3.5-5.2) Chloride Level 96mEq/L (97-108) Carbon Dioxide Level 18mmol/L (18-29) Blood Urea Nitrogen 19mg/dL (8-27) Creatinine 1.34mg/dL (0.76-1.27) Estimat Glomerular Filtration Rate 53mL/min (>59) Glucose Level 129mg/dL (60-99) Calcium Level 8.6mg/dL (8.5-10.1) Total Bilirubin 0.6mg/dL (0.0-1.2) Aspartate Amino Transf (AST/SGOT) 34U/L (0-50) Alanine Aminotransferase (ALT/SGPT) 23U/L (0-44) Alkaline Phosphatase 76U/L (25-160) Troponin T 0.027ug/L (0.0-0.011) Pro-B-Type Natriuretic Peptide 12886aa/mL (0-486) Total Protein 6.0g/dL (6.4-8.4) Albumin 3.5g/dL (3.4-5.0) Hold Chavez Top Tube Received (Received) Discharge & Departure Referrals: Torres Richmond MD (PCP) Romulo Aguilar DO Oct 06, 2016 12:57 Sandra Evans MD Oct 06, 2016 14:10
[2016-10-06 13:27] LABS: BASOPHILS % (AUTO) 0.6 % (0-3); EOSINOPHILS % (AUTO) 0.4 % (0-5); MONOCYTES % (AUTO) 7.3 % (4-12); Mean Corpuscular Hemoglobin 31.1 pg (27.0-35.0); Mean Corpuscular Volume 93.3 fL (81-100); NEUTROPHILS % (AUTO) 79.9 % (40-74); Platelet Count 155 bil/L (150-400)
[2016-10-06 13:50] LABS: TROPONIN T 0.027 ug/L (0.0-0.011)
--- NOTE | 2016-10-06 13:57 | DRSVH ---
PROCEDURE: X-RAY CHEST, TWO VIEWS ([id number]) INDICATIONS: SHORTNESS OF BREATH TECHNIQUE: 2 views of the chest were acquired. COMPARISON: [facility], CR, XR CHEST 1VW (PORTABLE), 08/23/2016, 10:28. FINDINGS: Surgical changes and devices: Sternotomy wires. Lungs and pleura: Bilateral small pleural effusions with adjacent atelectasis. No pneumothorax. Mediastinum: Mediastinal contours are normal. Heart size is normal. Bones and chest wall: No suspicious bony abnormalities. Soft tissues appear unremarkable. IMPRESSION: Bilateral small pleural effusions with adjacent atelectasis, which are new since 08/23/16. Dictated by: Drew Yanez M.D. on 10/06/2016 at 13:51 Approved by: Drew Yanez M.D. on 10/06/2016 at 13:56
--- NOTE | 2016-10-06 14:10 | ED.REPORT ---
HPI-Dyspnea / Wheezing Date of Service Oct 06, 2016 ED Provider: Sandra Evans MD Pt is an 89 year old male with a hx of heart valve surgery, HTN and hyperlipidemia presenting to the ED complaining of LE swelling and SOB worse with exertion onset about 3 days ago. He denies any hx of breathing problems. His brother reports that the pt has been taken off of his water pill. Denies chest pain, nausea, vomiting, fever, chills, or decreased urination. Nursing Notes Stated Complaint: SHORTNESS OF BREATH Chief Complaint: Respiratory Complaints Nursing Notes Reviewed: Yes Allergies: Coded Allergies: No Known Allergies (Verified Allergy, Unknown, 10/06/16) Scheduled Allopurinol (Allopurinol) 300 Mg Tablet 150 MG PO DAILY Aspirin (Aspirin) 325 Mg Tablet 325 MG PO DAILY Cholecalciferol (Vitamin D3) (Vitamin D3) 1,000 Unit Tab.chew 1,000 UNIT PO HS Clopidogrel Bisulfate (Plavix) 75 Mg Tablet 75 MG PO DAILY Levothyroxine (Synthroid) 75 Mcg Tablet 75 MCG PO DAILY Lisinopril (Lisinopril) 5 Mg Tablet 10 MG PO DAILY [place]-3/Dha/Epa/Fish Oil (Fish Oil 1,400 mg Softgel) 1 Each Capsule.dr 1 EACH PO BID Simvastatin (Simvastatin) 20 Mg Tablet 20 MG PO QAM Terazosin (Terazosin) 5 Mg Capsule 5 MG PO HS General Time Seen by MD: 14:08 Chief Complaint Shortness of breath Hx Obtained From: Patient, Other family... (brother) Arrived By: Walk-in Sudden in Onset?: No Onset Occurred: 3 days ago Symptom Duration: Since onset Severity: Current: No pain currently Severity: Maximum: No pain Recent Healthcare: Recent doctor visit, Recent hospitalization Similar Sx Previous: Yes Past Medical History Past Medical History Notes: ECHO August 30, 2014 Past Medical History Gout BPH Hypothyroid Reports: Hyperlipidemia, Hypertension Past Surgical History Cardiac Cath 06/25/10 minor irregularities in the left descending, no significant obstructive coronary artery disease Bioprosthetic Aortic valve replacement at [facility] Reports: Appendectomy Smoking History Former Smoker Social History Alcohol Use: Denies alcohol use Drug Use: Denies drug use Ambulatory Status Independent Review of Systems Constitutional: Denies: Chills, Fever Respiratory: Reports: Dyspnea on exertion, Shortness of breath Cardiovascular: Denies: Chest pain Musculoskeletal: Reports: Extremity swelling Complete sys rev & neg: except as marked. GI: Denies: Nausea, Vomiting Female: Denies: Urination decreased Physical Exam Initial Vital Signs Vital Signs (First) Date Time Temp Pulse Resp B/P Pulse Ox O2 Delivery O2 Flow Rate FiO2 10/06/16 12:52 36.4 86 20 192/81 91 Room Air Initial VS: Reviewed, Vital signs abnormal Head / Eyes: Atraumatic, Normocephalic, PERRL ENT: Mucous membranes moist, Conjunctiva normal, No scleral icterus Abdomen / GI: Soft, Non-tender, No guarding, No rebound, No distention Skin: Warm, Dry, No cyanosis Neurologic: Alert, Oriented, Nonfocal Psychiatric: Mood/affect normal, Behavior normal, Normal thought content General/Constitutional: Awake, Alert, No acute distress Neck: Atraumatic, Supple Respiratory / Chest: Atraumatic Bibasilar rales up to mid lung field. Cardiovascular: Heart rate NL, Regular rhythm, Heart sounds NL, Peripheral circulation NL Increased JVP Lower Extremity / Pelvis / MS: Atraumatic, Neurologic intact, Vascular intact 2+ edema Interpretation & Diagnostics Lab Results Interpretation Result Diagram: 10/06/16 1315 10/06/16 1315 Test 10/06/16 13:15 White Blood Count 5.2th/mm3 (3.8-10.1) Red Blood Count 3.41mil/mm3 (4.40-5.80) Hemoglobin 10.6g/dL (13.8-17.2) Hematocrit 31.8% (41.0-50.0) Mean Corpuscular Volume 93.3fL (81-100) Mean Corpuscular Hemoglobin 31.1pg (27.0-35.0) Mean Corpuscular Hemoglobin Concent 33.3% (32.0-37.0) Red Cell Distribution Width 14.0% (12.3-15.4) Platelet Count 155bil/L (150-400) Neutrophils (%) (Auto) 79.9% (40-74) Lymphocytes (%) (Auto) 11.6% (14-46) Monocytes (%) (Auto) 7.3% (4-12) Eosinophils (%) (Auto) 0.4% (0-5) Basophils (%) (Auto) 0.6% (0-3) Sodium Level 133mEq/L (134-144) Potassium Level 4.0mEq/L (3.5-5.2) Chloride Level 96mEq/L (97-108) Carbon Dioxide Level 18mmol/L (18-29) Blood Urea Nitrogen 19mg/dL (8-27) Creatinine 1.34mg/dL (0.76-1.27) Estimat Glomerular Filtration Rate 53mL/min (>59) Glucose Level 129mg/dL (60-99) Calcium Level 8.6mg/dL (8.5-10.1) Total Bilirubin 0.6mg/dL (0.0-1.2) Aspartate Amino Transf (AST/SGOT) 34U/L (0-50) Alanine Aminotransferase (ALT/SGPT) 23U/L (0-44) Alkaline Phosphatase 76U/L (25-160) Troponin T 0.027ug/L (0.0-0.011) Pro-B-Type Natriuretic Peptide 14653pk/mL (0-486) Total Protein 6.0g/dL (6.4-8.4) Albumin 3.5g/dL (3.4-5.0) Hold Chavez Top Tube Received (Received) ECG Interpretation ECG Interpretation: 1st degree AV block. Increased QTC. Nonspecific T changes in v3-v6 compared to EKG on 08/2016. Time: 13:49 Interpreted by: ED physician Normal ECG Interpretation: Normal rate (79), Normal sinus rhythm X-Ray Chest Interpretation Chest Xray Interpretation: IMPRESSION: Bilateral small pleural effusions with adjacent atelectasis, which are new since 08/23/16. Dictated by: Drew Yanez M.D. on 10/06/2016 at 13:51 View: AP & lat Interpretation / Wet Read by: Interpret - Radiologist Re-Eval/Medical Decision Med Decision/Clinical Course The patient presents with dyspnea his clinical picture is consistent with congestive heart failure, he denies a prior history other he has been on diuretics in the past. The patient was found to have an elevated troponin which is likely due to strain from a heart failure. The patient does not have any acute EKG changes he does have an abnormal looking EKG but they appear to be old changes. The patient appears comfortable as long as he does not move however when I went to reevaluate him at one point his oxygen was 89% so he was placed on 2 L nasal cannula. We do not have any beds here at this hospital so the patient will be transferred to [facility] accepting doctor is Dr. Payne. Partial list of differential diagnoses considered were acute coronary syndrome, congestive heart fire, pneumonia, pulmonary embolus, and pneumothorax. Re-Evaluation/Progress : Time of Eval: 15:44 Patient Status: Condition improved Re-Evaluation/Progress Note: Discussed plan for transfer. Pt and his brother agrees with plan. Oxygen was 89% so put him on 2 L. Consultation : Call Returned at: 15:41 [place]: Accepts admit Note: [facility]. They accept the transfer. Counseled Regarding: Diagnosis, Lab results, Need for transfer Discharge & Departure Impression: Primary Impression: CHF (congestive heart failure) Congestive heart failure type: unspecified congestive heart failure type Congestive heart failure chronicity: unspecified congestive heart failure chronicity Qualified Code: I50.9 - Heart failure, unspecified Additional Impression: Hypoxia Disposition: Transfer, Acute Care Facility ([facility]) Transfer Requested at: 15:42 Call returned time Receiving Hospital: [facility] Transfer Accepted: Yes Transfer Reason: Higher level of care Patient Status: Stable Patient Informed: Yes Discharge Condition All VS Reviewed: Yes Condition: Improved Referrals: Torres Richmond MD (PCP) Mnial Attestation Portions of this note were transcribed by Yvette Can. I, Dr. Evans personally performed the history, physical exam and medical decision-making; I reviewed and confirmed the accuracy of the information in the transcribed note. Signed by : Minal Isabel, 10/06/2016. copies to: Torres Richmond MD, Jena M MD Oct 06, 2016 14:10 YVETTE CAN Oct 06, 2016 14:12
[2016-10-06] MEDS ORDERED: CHOL10008 PO (15:07)
[2016-10-06] MEDS ORDERED: OMEG-15 PO (15:07)
[2016-10-06] MEDS ORDERED: Nitroglycerin 2% 1 Gm Ointment TOPICAL ONE (15:15)
[2016-10-06] MEDS ORDERED: Furosemide 10 mg/mL 2 mL Inj IVPUSH ONE (15:15)
[2016-10-06 16:51] LABS: APPEARANCE,URINE CLEAR (CLEAR,HAZY); COLOR,URINE STRAW (YELLOW); PH,URINE 5.5 (5.0-8.0)
[2016-10-06 16:52] LABS: OCCULT BLOOD,URINE SMALL (NEGATIVE); UROBILINOGEN,URINE NORMAL (NORMAL)
== END 2016-10-06 17:27 | disposition short-term general hospital (02) ==
LOC: SED 12:48
DX: I50.9 Heart failure, unspecified (principal); R09.02 Hypoxemia; I10 Essential (primary) hypertension; E78.5 Hyperlipidemia, unspecified; E03.9 Hypothyroidism, unspecified; Z95.2 Presence of prosthetic heart valve; Z87.891 Personal history of nicotine dependence; Z79.82 Long term (current) use of aspirin
CPT/HCPCS: 36415; 71020; 80053; 81000; 83880; 84484; 85025; 93005; 96374; 99285; J1940